=== PATIENT | female | born 1970 | race Caucasian/White ===

== ENCOUNTER 2017-05-31 01:00 | Emergency (ER) | payer MEDICAID ==
[2017-05-31 01:01] VITALS: BMI 37.5
[2017-05-31 01:14] VITALS: TEMP 97.8
[2017-05-31 01:15] VITALS: RESP 16
--- NOTE | 2017-05-31 01:59 | ED PDOC ---
Arrival/HPI - General Chief Complaint: Upper Extremity Problem/Injury Time Seen by Provider: 05/31/17 01:22 Historian: Patient - History of Present Illness Narrative History of Present Illness (Text): 05/31/17 01:22 Sanjana Madrigal 46 year old, whose past medical history includes migraines, who presents to the emergency department complaining of bilateral neck pain tonight. Patient states that her pain is worse on the left than the right and radiates down her left arm. Patient is states that she cannot move her neck. Patient denies any fever, chills, chest pain, shortness of breath, nausea, vomiting, diarrhea, urinary symptoms, back pain, neck pain, headache, dizziness , or any other complaints. Symptom Onset: Gradual Symptom Course: Unchanged Severity Level: Mild Activities at Onset: Light Context: Home Past Medical History - Provider Review Nursing Documentation Reviewed: Yes - Infectious Disease Hx of Infectious Diseases: None - Tetanus Immunization Tetanus Immunization: Unknown - Reproductive Menopause: Yes - Cardiac Hx Cardiac Disorders: No Hx Angina: No - Pulmonary Hx Respiratory Disorders: No - Neurological Hx Migraine: Yes Hx Syncope: Yes - HEENT Hx HEENT Disorder: No - Renal Hx Renal Disorder: No - Endocrine/Metabolic Hx Endocrine Disorders: No - Hematological/Oncological Other/Comment: UTERINE FIBROIDS - Integumentary Hx Dermatological Disorder: No - Musculoskeletal/Rheumatological Hx Musculoskeletal Disorders: No Hx Arthritis: Yes Hx Falls: Yes - Gastrointestinal Hx Gastrointestinal Disorders: No - Genitourinary/Gynecological Hx Genitourinary Disorders: No - Psychiatric Hx Depression: Yes Hx Emotional Abuse: No Hx Physical Abuse: No Hx Substance Use: No - Surgical History Hx Appendectomy: Yes Other/Comment: MIGRAINE - Anesthesia Hx Anesthesia: Yes - Suicidal Assessment Feels Threatened In Home Enviroment: No Family/Social History - Physician Review Nursing Documentation Reviewed: Yes Family/Social History: No Known Family HX Smoking Status: Never Smoked Hx Alcohol Use: No Hx Substance Use: No Allergies/Home Meds Allergies/Adverse Reactions: Allergies No Known Allergies Allergy (Verified 05/31/17 01:10) Home Medications: Home Meds Medication Instructions Recorded Confirmed Amitriptyline HCl 25 mg PO DAILY 02/03/17 05/31/17 Ferrous Sulfate [Feosol] 325 mg PO DAILY 02/03/17 05/31/17 Gemfibrozil 600 mg PO BID 02/03/17 05/31/17 Sertraline HCl 50 mg PO DAILY 02/03/17 05/31/17 Topiramate 25 mg PO BID 02/03/17 05/31/17 Cyanocobalamin [Vitamin B12 1000 1 tab PO BID 05/31/17 05/31/17 mcg Tab] Gabapentin [Neurontin] 300 mg PO TID 05/31/17 05/31/17 Hydroxychloroquine Sulfate 200 mg PO BID 05/31/17 05/31/17 [Plaquenil] Meclizine [Meclizine*] 25 mg PO DAILY 05/31/17 05/31/17 Omeprazole 40 mg PO DAILY 05/31/17 05/31/17 Review of Systems - Review of Systems Constitutional: absent: Fevers, Night Sweats Eyes: absent: Vision Changes ENT: absent: Hearing Changes Respiratory: absent: SOB, Cough Cardiovascular: absent: Chest Pain Gastrointestinal: absent: Abdominal Pain Musculoskeletal: Neck Pain (worse on left than right; radiates down arm) Skin: absent: Rash, Pruritis Neurological: absent: Headache, Dizziness Endocrine: absent: Diaphoresis Hemo/Lymphatic: absent: Adenopathy Psychiatric: absent: Anxiety, Depression Physical Exam Vital Signs Temp Pulse Resp BP Pulse Ox 05/31/17 04:18 66 16 122/81 99 05/31/17 01:13 79 16 126/77 98 05/31/17 01:10 97.8 F Temperature: Afebrile - Systems Exam Head: Present: Atraumatic, Normocephalic Pupils: Present: PERRL Extroacular Muscles: Present: EOMI Conjunctiva: Present: Normal Mouth: Present: Moist Mucous Membranes Neck: Present: Normal Range of Motion, Paraspinal Tenderness (bilateral) Respiratory/Chest: Present: Clear to Auscultation, Good Air Exchange. No: Respiratory Distress, Accessory Muscle Use Cardiovascular: Present: Regular Rate and Rhythm, Normal S1, S2. No: Murmurs Abdomen: Present: Normal Bowel Sounds. No: Tenderness, Distention, Peritoneal Signs Back: Present: Normal Inspection Upper Extremity: Present: Normal Inspection. No: Cyanosis, Edema Lower Extremity: Present: Normal Inspection. No: Edema Neurological: Present: GCS=15, CN II-XII Intact, Speech Normal Skin: Present: Warm, Dry, Normal Color. No: Rashes Psychiatric: Present: Alert, Oriented x 3, Normal Insight, Normal Concentration Medical Decision Making ED Course and Treatment: 05/31/17 02:00 Impression: 46 year old female complaining of bilateral neck pain worse on left than right and radiates down arm tonight. Differential Diagnosis included but are not limited to: Plan: -- Cervical Spine CT w/o contrast -- Head CT w/o contrast -- Reassess and disposition Prior Visits: Notes and results from previous visits were reviewed. Patient was last seen in the emergency department on 01/14/16 for altered mental status prior to arriving that day. Patient was admitted to hospitalist care for further evaluation. Progress Notes: 05/31/17 02:59 CT Head Without Intravenous Contrast Dictated and Authenticated by: Jason Archuleta MD FINDINGS: Brain: Mild atrophy. No intracranial hemorrhage. No mass. No definite edema. Ventricles: No hydrocephalus. Bones/joints: No acute fracture. Soft tissues: Unremarkable. Sinuses: No acute sinusitis. Mastoid air cells: No mastoid effusion. Orbits: Unremarkable as visualized. IMPRESSION: 1. No acute intracranial abnormality. 2. Incidental/non-acute findings are described above. 05/31/17 03:10 CT Cervical Spine Without Intravenous Contrast FINDINGS: Vertebrae: No acute fracture. Straightening of cervical spine. Discs/spinal canal/neural foramina: Early degenerative disc disease within upper cervical spine. Mild degenerative disc disease within mid cervical spine. [id number] degenerative disc disease within lower cervical spine. Disc herniations within mid and lower cervical spine, suboptimally evaluated. Mild indentation thecal sac/cord mid cervical spine. Mild indentation thecal sac/cord lower cervical spine. Neuroforaminal narrowing within lower cervical spine. Soft tissues: Unremarkable. Lung apices: Unremarkable as visualized. IMPRESSION: 1. No fracture. 2. If neck pain persists, consider MRI for further evaluation. 3. Incidental/non-acute findings are described above. Thank you for allowing us to participate in the care of your patient. Dictated and Authenticated by: Jason Archuleta MD - RAD Interpretation Radiology Orders: 05/31/17 01:36 CERVICAL SPINE W/O CONTRAST [CT] Stat 05/31/17 01:37 HEAD W/O CONTRAST [CT] Stat - Medication Orders Current Medication Orders: Discontinued Medications Cyclobenzaprine HCl (Flexeril) 10 mg PO STAT STA Stop: 05/31/17 04:05 Last Admin: 05/31/17 04:17 Dose: 10 mg Ketorolac Tromethamine (Toradol) 15 mg IM STAT STA Stop: 05/31/17 03:30 Last Admin: 05/31/17 03:47 Dose: 15 mg MAR Pain Assessment Document 05/31/17 03:47 AD (Rec: 05/31/17 03:47 AD [id number]) Pain Reassessment Is this a pain reassessment? No Presence of Pain Presence of Pain Yes Description Intensity of Pain at present 8 Pain Behavior Facial Grimacing IM Administration Charges Document 05/31/17 03:47 AD (Rec: 05/31/17 03:47 AD [id number]) Injection Site MAR Injection Site Right Deltoid Charges for Administration # of IM Administrations 1 - Scribe Statement The provider has reviewed the documentation as recorded by the Scribe Yessenia Sharp Provider Scribe Attestation: All medical record entries made by the Scribe were at my direction and personally dictated by me. I have reviewed the chart and agree that the record accurately reflects my personal performance of the history, physical exam, medical decision making, and the department course for this patient. I have also personally directed, reviewed, and agree with the discharge instructions and disposition. Disposition/Present on Arrival - Present on Arrival Any Indicators Present on Arrival: No History of DVT/PE: No History of Uncontrolled Diabetes: No Urinary Catheter: No History of Decub. Ulcer: No History Surgical Site Infection Following: None - Disposition Have Diagnosis and Disposition been Completed?: Yes Diagnosis: Cervical radiculopathy Disposition: HOME/ ROUTINE Disposition Time: 04:20 Condition: GOOD Discharge Instructions (ExitCare): Cervical Radiculopathy (ED) Prescriptions: Cyclobenzaprine [Cyclobenzaprine HCl] 10 mg PO TID #21 tab Referrals: Desi Cutler MD [Primary Care Provider] - Follow up with primary Abdifatah Lockwood MD [Staff Provider] - Follow up with primary Forms: [employer] (Yi)
--- NOTE | 2017-05-31 02:56 | CT ---
EXAM: CT Head Without Intravenous Contrast CLINICAL HISTORY: 46 years old, female; Pain; Headache; Additional info: Neck pain TECHNIQUE: Axial computed tomography images of the head/brain without intravenous contrast. All CT scans at this facility use one or more dose reduction techniques, viz.: automated exposure control; ma/kV adjustment per patient size (including targeted exams where dose is matched to indication; i.e. head); or iterative reconstruction technique. COMPARISON: CT - HEAD W/O CONTRAST 2016-01-14 04:02 FINDINGS: Brain: Mild atrophy. No intracranial hemorrhage. No mass. No definite edema. Ventricles: No hydrocephalus. Bones/joints: No acute fracture. Soft tissues: Unremarkable. Sinuses: No acute sinusitis. Mastoid air cells: No mastoid effusion. Orbits: Unremarkable as visualized. IMPRESSION: 1. No acute intracranial abnormality. 2. Incidental/non-acute findings are described above.
--- NOTE | 2017-05-31 03:00 | CT ---
EXAM: CT Cervical Spine Without Intravenous Contrast CLINICAL HISTORY: 46 years old, female; Pain; Neck pain TECHNIQUE: Axial computed tomography images of the cervical spine without intravenous contrast. All CT scans at this facility use one or more dose reduction techniques, viz.: automated exposure control; ma/kV adjustment per patient size (including targeted exams where dose is matched to indication; i.e. head); or iterative reconstruction technique. Coronal and sagittal reformatted images were created and reviewed. COMPARISON: US - CAROTID VERTEBRAL DUPLEX 2016-01-14 14:51 FINDINGS: Vertebrae: No acute fracture. Straightening of cervical spine. Discs/spinal canal/neural foramina: Early degenerative disc disease within upper cervical spine. Mild degenerative disc disease within mid cervical spine. [id number] degenerative disc disease within lower cervical spine. Disc herniations within mid and lower cervical spine, suboptimally evaluated. Mild indentation thecal sac/cord mid cervical spine. Mild indentation thecal sac/cord lower cervical spine. Neuroforaminal narrowing within lower cervical spine. Soft tissues: Unremarkable. Lung apices: Unremarkable as visualized. IMPRESSION: 1. No fracture. 2. If neck pain persists, consider MRI for further evaluation. 3. Incidental/non-acute findings are described above.
[2017-05-31 04:18] VITALS: BP 122/81; PULSE 66; O2SAT 99
== END 2017-05-31 04:19 | disposition home or self-care (01) ==
LOC: ED 01:00
DX: M54.12 Radiculopathy, cervical region (principal)
CPT/HCPCS: 70450; 72125; 96372; 99284; J1885

== ENCOUNTER 2017-06-13 18:36 | Emergency (ER) | payer MEDICAID ==
[2017-06-13] MEDS ORDERED: TDAP Vaccine 0.5 mL Syr IM ONE (18:51)
--- NOTE | 2017-06-13 18:52 | ED PDOC ---
Arrival/HPI - General Chief Complaint: Abnormal Skin Integrity Time Seen by Provider: 06/13/17 18:51 Historian: Patient, Family (son) - History of Present Illness Narrative History of Present Illness (Text): 06/13/17 18:52 This 47 yo female presents to this ED c/o right thumb tip laceration x [employer]. Patient stated while picking up garbage form the floor on her house, she accidentally cut her thumb with an used razor blade. Patient does not remember last Tetanus. Denies other complains. Patient has FROM of her thumb. Time/Duration: Prior to Arrival Context: Home Past Medical History - Provider Review Nursing Documentation Reviewed: Yes - Infectious Disease Hx of Infectious Diseases: None - Tetanus Immunization Tetanus Immunization: Unknown - Cardiac Hx Cardiac Disorders: Yes Hx Angina: No - Pulmonary Hx Respiratory Disorders: No - Neurological Hx Migraine: Yes Hx Syncope: Yes - HEENT Hx HEENT Disorder: No - Renal Hx Renal Disorder: No - Endocrine/Metabolic Hx Endocrine Disorders: No - Hematological/Oncological Other/Comment: UTERINE FIBROIDS - Integumentary Hx Dermatological Disorder: No - Musculoskeletal/Rheumatological Hx Musculoskeletal Disorders: No Hx Arthritis: Yes Hx Falls: Yes Other/Comment: nerve pain - Gastrointestinal Hx Gastrointestinal Disorders: No - Genitourinary/Gynecological Hx Genitourinary Disorders: No - Psychiatric Hx Psychophysiologic Disorder: Yes Hx Depression: Yes Hx Emotional Abuse: No Hx Physical Abuse: No Hx Substance Use: No - Surgical History Hx Appendectomy: Yes - Anesthesia Hx Anesthesia: Yes Hx Anesthesia Reactions: No - Suicidal Assessment Feels Threatened In Home Enviroment: No Family/Social History - Physician Review Nursing Documentation Reviewed: Yes Family/Social History: Other (noncontributory) Smoking Status: Never Smoked Hx Alcohol Use: No Hx Substance Use: No Allergies/Home Meds Allergies/Adverse Reactions: Allergies No Known Allergies Allergy (Verified 06/13/17 18:44) Home Medications: Home Meds Medication Instructions Recorded Confirmed Amitriptyline HCl 25 mg PO DAILY 02/03/17 06/13/17 Ferrous Sulfate [Feosol] 325 mg PO DAILY 02/03/17 06/13/17 Gemfibrozil 600 mg PO BID 02/03/17 06/13/17 Sertraline HCl 50 mg PO DAILY 02/03/17 06/13/17 Topiramate 25 mg PO BID 02/03/17 06/13/17 Cyanocobalamin [Vitamin B12 1000 1 tab PO BID 05/31/17 06/13/17 mcg Tab] Gabapentin [Neurontin] 300 mg PO TID 05/31/17 06/13/17 Hydroxychloroquine Sulfate 200 mg PO BID 05/31/17 06/13/17 [Plaquenil] Meclizine [Meclizine*] 25 mg PO DAILY 05/31/17 06/13/17 Omeprazole 40 mg PO DAILY 05/31/17 06/13/17 Review of Systems - Review of Systems Constitutional: Normal. absent: Fatigue, Fevers Eyes: Normal ENT: Normal Respiratory: Normal Cardiovascular: Normal Gastrointestinal: Normal Genitourinary Female: Normal Musculoskeletal: Other (see hpi) Skin: Normal Neurological: Normal Endocrine: Normal Hemo/Lymphatic: Normal Psychiatric: Normal Physical Exam Vital Signs Temp Pulse Resp BP Pulse Ox 06/13/17 18:48 98.2 F 85 18 135/75 98 Temperature: Afebrile Blood Pressure: Normal Pulse: Regular Respiratory Rate: Normal Appearance: Positive for: Well-Appearing, Non-Toxic, Comfortable Pain Distress: None Mental Status: Positive for: Alert and Oriented X 3 - Systems Exam Head: Present: Atraumatic, Normocephalic Mouth: Present: Moist Mucous Membranes Neck: Present: Normal Range of Motion Upper Extremity: Present: Normal ROM, NORMAL PULSES, Neurovascularly Intact, Capillary Refill < 2s, Other ((+) right thumb tip laceration, nailbed is intact , approx. 2 cm). No: Cyanosis, Edema Lower Extremity: Present: Normal Inspection Neurological: Present: GCS=15, CN II-XII Intact, Speech Normal Skin: Present: Warm, Dry, Normal Color, Laceration (see UE). No: Rashes Psychiatric: Present: Alert, Oriented x 3 Medical Decision Making ED Course and Treatment: 06/13/17 20:06 Re-evaluation. Patient feels better. Discussed results and plan with patient who expresses understanding. All questions answered and there is agreement with the plan to discharge home with instructions. Patient stable for discharge. Return if symptoms persist or worsen. Patient was recommended to f/u pmd in 2 days for wound recheck, and sutures are absorbable , so they would fall off by themselves. Patient recommended to return to emergency if thumb becomes painful, redness, swelling, or discharge. Re-evaluation Time: 20:06 Reassessment Condition: Re-examined, Improved - Medication Orders Current Medication Orders: Discontinued Medications Tetanus/Reduced Diphtheria/Acell Pertussis (Boostrix Vaccine Inj) 0.5 ml IM .ONCE ONE Stop: 06/13/17 18:52 Last Admin: 06/13/17 18:59 Dose: 0.5 ml Immunization Registry Document 06/13/17 18:59 SE (Rec: 06/13/17 19:00 SE [id number]) Immunization Registry Consent Date 05/31/17 - Procedure PROCEDURE NOTE (Text): 06/13/17 20:06 PROCEDURE: LACERATION REPAIR Performed by the emergency provider Location: right thumb tip Length: 2 cm Description: clean wound edges, no foreign bodies Distal CMS: Normal. No deficits. Neurovascularly intact. Anesthesia: Lidocaine 1% with Epi, radial nerve block _ wrist Preparation: The wound was cleaned with NS and [place]. The area was prepped and draped in the usual sterile fashion. Exploration: The wound was explored and no foreign bodies were found. Procedure: The wound was closed with Monocryl 4-0. There was good approximation. In total, 4 sutures were used. Post-Procedure: Good closure and hemostasis. The patient tolerated the procedure well and there were no complications. CSM remains intact. Post procedure dressing applied. Disposition/Present on Arrival - Present on Arrival Any Indicators Present on Arrival: No History of DVT/PE: No History of Uncontrolled Diabetes: No Urinary Catheter: No History of Decub. Ulcer: No History Surgical Site Infection Following: None - Disposition Have Diagnosis and Disposition been Completed?: Yes Diagnosis: Thumb laceration Disposition: HOME/ ROUTINE Disposition Time: 20:06 Patient Plan: Discharge Condition: IMPROVED Discharge Instructions (ExitCare): Laceration (ED), Care For Your Absorbable Stitches (ED) Additional Instructions: Call private doctor for follow up visit in 2 days for wound check. Keep wound clean and dry for 2 days, then clean wound with soap and water daily. return to emergency if wound becomes infected, or worsening of pain. Stitches are absorbable, so they will fall off by themselves Referrals: Desi Cutler MD [Primary Care Provider] - Follow up with primary Forms: [employer] (Cymro)
[2017-06-13 18:54] VITALS: BP 135/75; PULSE 85; RESP 18; TEMP 98.2; O2SAT 98; BMI 41.5
[2017-06-13] MEDS ORDERED: LIDOCAIN/EPI 1-0.001% 10ML INJ SOL IJ ONE (19:11)
== END 2017-06-13 20:11 | disposition home or self-care (01) ==
LOC: ED 18:36
DX: S61.011A Laceration without foreign body of right thumb without damage to nail, initial encounter (principal); W45.8XXA Other foreign body or object entering through skin, initial encounter; Y92.009 Unspecified place in unspecified non-institutional (private) residence as the place of occurrence of the external cause; Z23 Encounter for immunization

== ENCOUNTER 2017-08-25 13:31 | Emergency (ER) | payer MEDICAID ==
[2017-08-25 13:45] VITALS: RESP 18; TEMP 98.2; BMI 39.4
--- NOTE | 2017-08-25 14:01 | ED PDOC ---
Arrival/HPI - General Chief Complaint: Syncope Time Seen by Provider: 08/25/17 13:34 Historian: Patient - History of Present Illness Narrative History of Present Illness (Text): 08/25/17 13:58 47yo female with PMHx of syncope and Migraine bib bls with complaint of syncope. the son who was by the bedside states patient has been in and out of consciousness 8times since this morning. Notes previous history of similar symptom in the past. States it doesn't usually last this long. Patient not answering questions, appear catatonic, but wakes up with sternal rub. Past Medical History - Provider Review Nursing Documentation Reviewed: Yes - Infectious Disease Hx of Infectious Diseases: None - Tetanus Immunization Tetanus Immunization: Unknown - Cardiac Hx Cardiac Disorders: Yes Hx Angina: No - Pulmonary Hx Respiratory Disorders: No - Neurological Hx Migraine: Yes Hx Syncope: Yes - HEENT Hx HEENT Disorder: No - Renal Hx Renal Disorder: No - Endocrine/Metabolic Hx Endocrine Disorders: No - Hematological/Oncological Other/Comment: UTERINE FIBROIDS - Integumentary Hx Dermatological Disorder: No - Musculoskeletal/Rheumatological Hx Musculoskeletal Disorders: No Hx Arthritis: Yes Hx Falls: Yes Other/Comment: nerve pain - Gastrointestinal Hx Gastrointestinal Disorders: No - Genitourinary/Gynecological Hx Genitourinary Disorders: No - Psychiatric Hx Psychophysiologic Disorder: Yes Hx Depression: Yes Hx Emotional Abuse: No Hx Physical Abuse: No Hx Substance Use: No - Surgical History Hx Appendectomy: Yes - Anesthesia Hx Anesthesia: Yes Hx Anesthesia Reactions: No Hx Malignant Hyperthermia: No - Suicidal Assessment Feels Threatened In Home Enviroment: No Family/Social History - Physician Review Nursing Documentation Reviewed: Yes Family/Social History: Unknown Family HX Smoking Status: Never Smoked Hx Alcohol Use: No Hx Substance Use: No Allergies/Home Meds Allergies/Adverse Reactions: Allergies No Known Allergies Allergy (Verified 06/13/17 18:44) Home Medications: Home Meds Medication Instructions Recorded Confirmed Amitriptyline HCl 25 mg PO DAILY 02/03/17 08/25/17 Ferrous Sulfate [Feosol] 325 mg PO DAILY 02/03/17 08/25/17 Gemfibrozil 600 mg PO BID 02/03/17 08/25/17 Sertraline HCl 50 mg PO DAILY 02/03/17 08/25/17 Topiramate 25 mg PO BID 02/03/17 08/25/17 Cyanocobalamin [Vitamin B12 1000 1 tab PO BID 05/31/17 08/25/17 mcg Tab] Gabapentin [Neurontin] 300 mg PO TID 05/31/17 08/25/17 Hydroxychloroquine Sulfate 200 mg PO BID 05/31/17 08/25/17 [Plaquenil] Meclizine [Meclizine*] 25 mg PO DAILY 05/31/17 08/25/17 Omeprazole 40 mg PO DAILY 05/31/17 08/25/17 Review of Systems - Physician Review All systems were reviewed & negative as marked: Yes - Review of Systems Constitutional: Normal Eyes: Normal ENT: Normal Respiratory: Normal Cardiovascular: Normal Gastrointestinal: Normal Genitourinary Female: Normal Musculoskeletal: Normal Skin: Normal Neurological: Dizziness (syncope) Endocrine: Normal Hemo/Lymphatic: Normal Psychiatric: Normal Physical Exam Vital Signs Reviewed: Yes Vital Signs Temp Pulse Resp BP Pulse Ox 08/25/17 16:32 66 18 119/69 96 08/25/17 15:06 69 18 115/68 96 08/25/17 13:40 98.2 F 74 18 117/71 95 Temperature: Afebrile Blood Pressure: Normal Pulse: Regular Respiratory Rate: Normal Appearance: Positive for: Well-Appearing, Non-Toxic, Comfortable Pain Distress: None Mental Status: Positive for: Alert and Oriented X 3 Finger Stick Blood Glucose: 130 - Systems Exam Head: Present: Atraumatic, Normocephalic Pupils: Present: PERRL Extroacular Muscles: Present: EOMI Conjunctiva: Present: Normal Mouth: Present: Moist Mucous Membranes Neck: Present: Normal Range of Motion Respiratory/Chest: Present: Clear to Auscultation, Good Air Exchange. No: Respiratory Distress, Accessory Muscle Use Cardiovascular: Present: Regular Rate and Rhythm, Normal S1, S2. No: Murmurs Abdomen: Present: Normal Bowel Sounds. No: Tenderness, Distention, Peritoneal Signs Back: Present: Normal Inspection Upper Extremity: Present: Normal Inspection. No: Cyanosis, Edema Lower Extremity: Present: Normal Inspection. No: Edema Neurological: Present: GCS=15, CN II-XII Intact, Speech Normal, Motor Func Grossly Intact, Normal Sensory Function Skin: Present: Warm, Dry, Normal Color. No: Rashes Psychiatric: Present: Alert, Oriented x 3, Normal Insight, Normal Concentration Medical Decision Making ED Course and Treatment: 08/25/17 14:06 EKG NSR @ 74bpm 08/25/17 17:32PT was neurologically intact and hemodynamically stable in ED. Her lab was all WNL Head CT - Negative CXR NAD All result was DW the pt. On further questioning, pt presented her medication. She is on Tylenol/codeine, sertaline, gabapentin and other medications. Combination of these medications together can cause pt's syncope. With the son and daughter by the beside, this was DW the pt. They states that they thought pt is only on Tylenol and not Tylenol with codeine. Patient was seen here last year for same complaint and all work up was negative. She was also seen in ED by the PES screener Navin and she was referred to [facility]. PT was DC home and referred to her PMD - Lab Interpretations Lab Results: 08/25/17 14:00 08/25/17 14:00 Lab Results 08/25/17 14:00: Alcohol, Quantitative < 10 08/25/17 14:00: Salicylates < 1 L, Acetaminophen < 10.0 L 08/25/17 14:00: PT 10.4, INR 0.91 L, APTT 25.4 08/25/17 14:00: Sodium 141, Potassium 4.2, Chloride 105, Carbon Dioxide 23, Anion Gap 16, BUN 13, Creatinine 0.6 L, Est GFR ( Amer) > 60, Est GFR ( Non-Af Amer) > 60, Random Glucose 116 H, Calcium 9.1, Total Bilirubin 0.3, AST 20, ALT 24, Alkaline Phosphatase 70, Lactate Dehydrogenase 442, Total Creatine Kinase 93, Troponin I < 0.01, Total Protein 7.0, Albumin 4.0, Globulin 3.0, Albumin/Globulin Ratio 1.3 08/25/17 14:00: WBC 8.5, RBC 4.51, Hgb 12.8, Hct 39.5, MCV 87.6, MCH 28.4, MCHC 32.4, RDW 12.6, Plt Count 283, MPV 9.1, Gran % 74.5 H, Lymph % (Auto) 17.3 L, Meade % (Auto) 7.2 H, Eos % (Auto) 0.6 L, Baso % (Auto) 0.4, Gran # 6.36, Lymph # (Auto) 1.5, Meade # (Auto) 0.6, Eos # (Auto) 0.1, Baso # (Auto) 0.03 08/25/17 13:44: POC Glucose (mg/dL) 130 H - RAD Interpretation Radiology Orders: 08/25/17 13:43 CHEST PORTABLE [RAD] Stat 08/25/17 13:44 HEAD W/O CONTRAST [CT] Stat Disposition/Present on Arrival - Present on Arrival Any Indicators Present on Arrival: No History of DVT/PE: No History of Uncontrolled Diabetes: No Urinary Catheter: No History of Decub. Ulcer: No History Surgical Site Infection Following: None - Disposition Have Diagnosis and Disposition been Completed?: Yes Diagnosis: Syncope Disposition: HOME/ ROUTINE Disposition Time: 16:45 Patient Plan: Discharge Patient Problems: Current Active Problems Problem Status Onset Syncope Acute Condition: STABLE Discharge Instructions (ExitCare): Syncope (Fainting), Syncope (ED) Additional Instructions: Follow up with your doctor/Neurologist/Psychiatrist Return to for any new or worsening symptoms Referrals: Antonino Mendoza MD [Primary Care Provider] - Follow up with primary Forms: [employer] (Polish)
[2017-08-25 14:34] LABS: BASO # 0.03 K/mm3 (0.0-2.0); BASO % 0.4 % (0.0-3.0); EOS # 0.1 (0.0-0.7); EOS % 0.6 % (1.5-5.0); GRAN # 6.36 (1.4-6.5); GRAN % 74.5 % (50.0-68.0); HEMOGLOBIN 12.8 g/dL (12.0-16.0); LYMPH # 1.5 (1.2-3.4); LYMPH % 17.3 % (22.0-35.0); MEAN CELL VOLUME 87.6 fl (80.0-105.0); MEAN CORPUSCULAR HEMOGLOBIN 28.4 pg (25.0-35.0); MEAN CORPUSCULAR HGB CONC 32.4 g/dl (31.0-37.0); MEAN PLATELET VOLUME 9.1 fl (7.0-11.0); MONO # 0.6 (0.1-0.6); MONO % 7.2 % (1.0-6.0); RBC 4.51 10^6/uL (3.5-6.1); RED CELL DISTRIBUTION WIDTH 12.6 % (11.5-14.5); WHITE BLOOD COUNT 8.5 10^3/ul (4.5-11.0)
[2017-08-25 14:51] LABS: ALB/GLOB RATIO 1.3 (1.1-1.8); ALT/SGPT 24 U/L (7-56); AST/SGOT 20 U/L (14-36); BLOOD UREA NITROGEN 13 mg/dL (7-21); CALCIUM 9.1 mg/dL (8.4-10.5); GFR AFRICAN-AMERICAN > 60; GFR NON-AFRICAN AMERICAN > 60
[2017-08-25 14:53] LABS: INR 0.91 (0.93-1.08); PROTHROMBIN TIME 10.4 SECONDS (9.4-12.5)
[2017-08-25 14:54] LABS: PARTIAL THROMBOPLASTIN TIME 25.4 Seconds (25.1-36.5)
[2017-08-25 15:03] LABS: ACETAMINOPHEN < 10.0 ug/ml (10.0-20.0); SALICYLATE < 1 mg/dL (2.0-20.0); TROPONIN I < 0.01 ng/mL
--- NOTE | 2017-08-25 15:03 | CT ---
PROCEDURE: CT HEAD WITHOUT CONTRAST. HISTORY: syncope COMPARISON: Comparison is made with 05/31/2017 TECHNIQUE: Axial computed tomography images were obtained through the head/brain without intravenous contrast. Radiation dose: Total exam DLP = 860.52 mGy-cm. This CT exam was performed using one or more of the following dose reduction techniques: Automated exposure control, adjustment of the mA and/or kV according to patient size, and/or use of iterative reconstruction technique. FINDINGS: HEMORRHAGE: No intracranial hemorrhage. BRAIN: No mass effect or edema. No atrophy or chronic microvascular ischemic changes. VENTRICLES: Unremarkable. No hydrocephalus. CALVARIUM: Unremarkable. PARANASAL SINUSES: Unremarkable as visualized. No significant inflammatory changes. MASTOID AIR CELLS: Unremarkable as visualized. No inflammatory changes. OTHER FINDINGS: None. IMPRESSION: No evidence of acute intracranial hemorrhage territorial infarct mass effect or midline shift.
[2017-08-25 15:07] VITALS: O2SAT 96
--- NOTE | 2017-08-25 15:12 | RAD ---
HISTORY: syncope COMPARISON: 12/09/2012 FINDINGS: LUNGS: No active pulmonary disease. PLEURA: No significant pleural effusion identified, no pneumothorax apparent. CARDIOVASCULAR: Normal. OSSEOUS STRUCTURES: No significant abnormalities. VISUALIZED UPPER ABDOMEN: Normal. OTHER FINDINGS: None. IMPRESSION: No active disease.
[2017-08-25 18:05] VITALS: BP 117/65; PULSE 61
--- NOTE | 2017-08-25 20:55 | CARD ---
APPROVED REPORT EKG Measurement Heart [id number] <Conclusion> Normal sinus rhythm Low voltage QRS Nonspecific T wave abnormality Abnormal ECG
== END 2017-08-25 18:33 | disposition home or self-care (01) ==
LOC: ED 13:31
DX: R55 Syncope and collapse (principal)